=== PATIENT | male | born 1985 | race Caucasian/White ===

== ENCOUNTER 2021-04-17 09:27 | Emergency (ER) | payer OTHER, SELFPAY ==
--- NOTE | ~2021-04-17 | XR_ITS ---
EXAMINATION: XR RIGHT HAND/WRIST CLINICAL INFORMATION: Fracture. Status post pins. COMPARISON: None. TECHNIQUE: 4 views right hand/wrist. FINDINGS: There is a displaced fracture base of 4th metacarpal. There are 2 pins seen traveling along the dorsal aspect of 4th and 5th metacarpals for stabilization. The 1st pin appears to be within or adjacent to proximal 4th metacarpal dorsal cortex. The 2nd pin appears to be lying adjacent to the proximal 5th metacarpal. No soft tissue abnormality seen. XR/XR hand wrist RT IMPRESSION: Displaced fracture base of 4th metacarpal with 2 pins seen dorsally as described above.
[2021-04-17 09:34] VITALS: BP 136/100; PULSE 105; RESP 14; TEMP 35.7; O2SAT 99; BMI 20.9
[2021-04-17] MEDS: oxyCODONE HCl Immed Release 5 MG TABLET PO (12:16)
--- NOTE | 2021-04-17 12:17 | ED.EXTPRO ---
HPI - Extremity Problem General Chief complaint: Extremity Injury, Upper Stated complaint: HAND ISSUE Time Seen by Provider: 04/17/21 10:26 Source: patient Mode of arrival: ambulatory Limitations: no limitations History of Present Illness HPI Narrative: 35-year-old male with a past medical history of a right 4th and 5th metacarpal fracture seen at [facility] approximately 1-2 weeks ago and is now status post ORIF presenting to the ED requesting for a new splint to be placed due to his splint that he had for this fracture got wet in the rain in the past few days and it smelled therefore he took it off. He reports he does not have a ride to [place] therefore this is why he came here. Denies any other symptoms complaints or concerns at this time. Reports he has a follow-up appointment on the with orthopedic surgeon. Related Data Allergies Allergy/AdvReac Type Severity Reaction Status Date / Time No Known Allergies Allergy Unverified 07/25/20 17:12 [No Known Allergies*] Review of Systems Review of Systems: Constitutional : No changes in activity, No lethargy, No recent prior head injury, No agitation, No increased fussiness ENT/Mouth : No Ear Pain, No Nasal discharge/drainage Eyes: No Eye Pain, No Swelling, No Redness, No Foreign Body, No Vision Changes Cardiovascular : No Chest Pain, No SOB Respiratory : No Cough Gastrointestinal : No Nausea, No Vomiting, No abdominal Pain Genitourinary : No Dysuria, No Urinary Frequency, No Urinary Incontinence, No Urgency, No Flank Pain Musculoskeletal : + joint pain, No neck stiffness, No back pain/injury Skin : No lacerations Neuro : No unsteady gait, No Paresthesias, No Loss of Consciousness, No altered mental status, No Headache Yes all other systems are reviewed and are negative [facility] Past Medical History Attestation statement: The following information was validated with the patient. Medical History ADHD Hand fracture, right Surgical History Hx of cholecystectomy Social History Social History Advance Directives: No Advance Directives Information Provided: No Physical Exam Vital Signs: Vital Signs: Last Vital Signs Temp 96.2 F L 04/17/21 09:34 Pulse 105 H 04/17/21 09:34 Resp 14 04/17/21 09:34 BP 136/100 H 04/17/21 09:34 Pulse Ox 99 04/17/21 09:34 Body Mass Index 20.9 vital signs have been reviewed as normal and appeared to be correct. Blood pressure hypertensive 136/100. Heart rate tachycardic at 105. Respiration rate normal. Temperature normal. Oxygen saturation normal. Appearance: Alert. Oriented X3. No acute distress. Head: Normal external exam. Normocephalic. Atraumatic. Eyes: PERRLA. EOMI. Conjunctiva and sclera normal. Eyelids normal. ENT: Pharynx normal. Uvula midline. Moist mucous membranes. Neck: Normal inspection. Neck supple. FROM. No adenopathy. Thyroid Normal. No meningeal signs. No neck mass noted. CVS: Normal heart rate and rhythm. Heart sound normal. Pulses normal throughout. No murmurs/rales/gallops. Respiratory: No respiratory distress. Painless inspiration. Breath sounds normal. No wheezes/rales/rhonchi noted. Chest nontender. No accessory muscle usage noted or decreased air movement noted. Back: Full range of motion noted. No rashes/lesion/induration/fluctuance or signs of infection noted. Skin: Skin warm and dry. Normal skin color. Normal skin turgor. No rashes/lesions/lacerations noted. Extremities: To right hand at the dorsal aspect patient has a wound with sutures in place that appears healing no signs of infection/fluctuance/surrounding erythema. He also has [address] Extremities exhibit normal range of motion. Extremities nontender. Neuro: Oriented X 3. No motor deficit. No sensory deficit. Reflexes normal. Normal steady gait. No focal neuro deficits noted. Vascular: + radial pulses/+ 2 distal pedal pulses/+2 dorsalis pedis b/l. Normal cap refill. No cyanosis noted to upper extremity nails and lower extremity toes nails. Course Course Course Narrative: 35-year-old male presenting to the ED requesting for his splint to be replaced after it got wet in the rain. He is status post ORIF at [facility] approximately 1-2 weeks ago has a follow-up appointment on the . He requested an x-ray which revealed displaced fracture base of 4th metacarpal with 2 pins seen dorsally as described above. Otherwise there were no acute processes. On exam there are no signs of infection. Therefore while waiting for the x-ray result reading patient eloped and no splint was able to be placed. MDM - Extremity (Nontraumatic) Medical Records Attestation: I reviewed the patient's medical records. Imaging Data Right hand/wrist x-ray: Attestation: I personally reviewed and interpreted this imaging study as follows: Radiologist's impression: FINDINGS: There is a displaced fracture base of 4th metacarpal. There are 2 pins seen traveling along the dorsal aspect of 4th and 5th metacarpals for stabilization. The 1st pin appears to be within or adjacent to proximal 4th metacarpal dorsal cortex. The 2nd pin appears to be lying adjacent to the proximal 5th metacarpal. No soft tissue abnormality seen. XR/XR hand wrist RT IMPRESSION: Displaced fracture base of 4th metacarpal with 2 pins seen dorsally as described above. Discharge Plan Discharge Clinical Impression: Visit for wound check, Fracture of hand Patient Disposition: Elopement Instructions: Splint Care (ED) Additional Instructions: You should follow-up with your orthopedic surgeon as scheduled on the . Return if any new or worsening symptoms. You should also follow-up with her PCP. Referrals: Katherine Benites NP-C [Primary Care Provider] - 2 days Print Language: Montserratian
== END 2021-04-17 12:40 | disposition left against medical advice (07) ==
PROVIDERS: Emergency Provider Emergency Medicine Emergency Medical Services; PCP Nurse Practitioner Family
DX: Z48.01 Encounter for change or removal of surgical wound dressing (principal); S62.314D Displaced fracture of base of fourth metacarpal bone, right hand, subsequent encounter for fracture with routine healing; S62.316D Displaced fracture of base of fifth metacarpal bone, right hand, subsequent encounter for fracture with routine healing; X58.XXXD Exposure to other specified factors, subsequent encounter
CPT/HCPCS: 73110; 73130; 99283; 99284